=== PATIENT | female | born 1985 | race Caucasian/White ===

== ENCOUNTER 2018-09-08 08:48 | Emergency (ER) | payer OTHER ==
[2018-09-08 09:14] VITALS: BP 112/67; PULSE 108; TEMP 98; BMI 24.4
--- NOTE | 2018-09-08 09:28 | PDOC ---
History of Present Illness - General Chief Complaint: Overdose Stated Complaint: OVERDOSE Time Seen by Provider: 09/08/18 09:10 History Source: Patient Exam Limitations: No Limitations - History of Present Illness Initial Comments: 32 yo f w a pmg of asthma, Hep C, anxiety, depression, IV heroin use, cocaine abuse, and a 15 Pack year smoking hx presents to the ER after a heroin overdose which she states was a relapse. She says she has not used heroin since May 26 but relapsed last night because she was given 3 bags. The patient states she was found down in her car by EMS. She last used Heroin this morning at 4 am when she used 1 bag of heroin which she says when mixed with water is 10 ccs. She also did two bags last night before she shot up at 4 am. She is part of an outpatient rehabilitation program which she does not feel is working well for her. She usually takes buprenorphine. She states she does not take methadone and EMS did not give her any naloxone bc when they opened her car door and put their hand on her she abruptly woke up. PCP: Pamela Boone PSH: None reported Allergies: Codeine Social Hx: IV heroin usgae, occasional cocaine, recreational alcohol, 1 PPD ~ 15 years Past History - Past Medical History Allergies/Adverse Reactions: Allergies Allergy/AdvReac Type Severity Reaction Status Date / Time codeine Allergy Verified 09/08/18 09:14 Home Medications: Ambulatory Orders Alprazolam [Xanax] 1 mg PO PRN PRN 09/08/18 Alprazolam [Xanax] 2 mg PO HS 09/08/18 Buprenorphine HCl/Naloxone HCl [Suboxone 12 mg-3 mg Sl Film] 1 each SL DAILY Clindamycin [Cleocin -] 600 mg PO Q8H #28 capsule 09/08/18 Clonazepam 1 mg PO DAILY 09/08/18 Divalproex [Depakote -] 0 mg PO DAILY 09/08/18 COPD: No GI Disorders: Yes (HEP C) Psychiatric Problems: Yes (ANXIETY/DEPRESSION) - Suicide/Smoking/Psychosocial Hx Smoking History: Current every day smoker Have you smoked in the past 12 months: Yes Number of Cigarettes Smoked Daily: 20 Information on smoking cessation initiated: No Hx Alcohol Use: Yes Drug/Substance Use Hx: Yes Review of Systems - Review of Systems Able to Perform ROS?: Yes Comments:: CONSTITUTIONAL: Absent: fever, no chills, no fatigue EYES: Absent: visual changes ENT: Absent: ear pain, no sore throat CARDIOVASCULAR: Absent: chest pain, no palpitations RESPIRATORY: Present: SOB Absent: cough GI: Absent: abdominal pain, no nausea, no vomiting, no constipation, no diarrhea GENITOURINARY: Absent: dysuria, no frequency, no hematuria MUSKULOSKELETAL: Absent: back pain, no arthralgia, no myalgia SKIN: Absent: rash NEURO: Absent: headache *Physical Exam - Vital Signs Last Vital Signs Temp Pulse Resp BP Pulse Ox 98.0 F 108 H 18 112/67 97 09/08/18 09:07 09/08/18 09:07 09/08/18 09:07 09/08/18 09:07 09/08/18 09:07 - Physical Exam Comments: GENERAL: Well-appearing, well-nourished. No apparent distress. HEENT: Normocephalic, atraumatic. PERRL, EOM intact. CARDIOVASCULAR: Tachycardic rate. Normal S1, S2. Regular rhythm. PULMONARY: There is left lower lobe wheezing. Mild evidence of respiratory distress. No rales or rhonchi. ABDOMEN: Soft, non-distended, non-tender. EXTREMITIES: Normal ROM in all four extremities. No gross deformities. SKIN: There are track freitas all over her arms. Warm, dry. No rash NEUROLOGICAL: No focal neurological deficits. ED Treatment Course - LABORATORY CBC & Chemistry Diagram: 09/08/18 09:36 09/08/18 09:36 Medical Decision Making - Medical Decision Making 32 yo f w a pmg of asthma, Hep C, anxiety, depression, IV heroin use, cocaine abuse, and a 15 Pack year smoking hx presents to the ER after a heroin overdose which she states was a relapse. She says she has not used heroin since May 26 but relapsed last night because she was given 3 bags. The patient states she was found down in her car by EMS. She last used Heroin this morning at 4 am when she used 1 bag of heroin which she says when mixed with water is 10 ccs. She also did two bags last night before she shot up at 4 am. She is part of an outpatient rehabilitation program which she does not feel is working well for her. She usually takes buprenorphine. She states she does not take methadone and EMS did not give her any naloxone bc when they opened her car door and put their hand on her she abruptly woke up. VS: Tachycardic DDx IBNLT: Heroin overdose, asthma exacerbation, aspiration injury, . Plan: Labs, Urine, duonebs, CXR, re-assess. Patient feels better, is no longer high, has been observed for 3 hours, and now has normal vital signs. - She states she will FU w her pcp later on today. *DC/Admit/Observation/Transfer Diagnosis at time of Disposition: Overdose of heroin, Asthma, Cellulitis - Discharge Dispostion Disposition: HOME Condition at time of disposition: Stable Decision to Admit order: No - Prescriptions Prescriptions: Clindamycin [Cleocin -] 600 mg PO Q8H #28 capsule - Referrals Referrals: Juanis Boone MD [Primary Care Provider] - - Patient Instructions Printed Discharge Instructions: DI for Cellulitis -- Adult, Chemical Dependency (Narcotic) (Alternative Therapy) Additional Instructions: We are sending an antibiotic to your pharmacy - please make sure to go and pick it up. Take clindamycin 3 times a day for the next 7 days. Please do not use anymore heroin. Please schedule a follow up appointment with your PCP in the next 24 to 48 hours to make sure you are getting better, being taken care of, and not relapsing again. Come back to the ER immediately if you are considering overdosing, do any drugs , have shortness of breath, or any other new or worsening concerns. Thank you for coming to the [facility] ER. We hope you feel better soon! Print Language: ITALIAN - Post Discharge Activity
[2018-09-08] MEDS ORDERED: ALBUTEROL SO4 2.5/IPRATROPIUM 0.5 INH SOL 3 ML VIAL.NEB. NEB ONE ×2 (09:29→09:37)
[2018-09-08 10:00] LABS: BASO % 0.4 % (0-2.0); EOS % 2.1 % (0-4.5); HEMATOCRIT 35.4 % (32.4-45.2); HEMOGLOBIN 12.1 GM/dL (10.7-15.3); LYMPH % 8.2 % (8-40); MCH 30.8 pg (25.7-33.7); MCHC 34.2 g/dl (32.0-36.0); MEAN CELL VOLUME 90.1 fl (80-96); MEAN PLT VOLUME 8.5 fl (7.5-11.1); MONO % 4.7 % (3.8-10.2); NEUT % 84.6 % (42.8-82.8); PLATELET COUNT 278 K/MM3 (134-434); RBC 3.93 M/mm3 (3.60-5.2); RDW 13.8 % (11.6-15.6); WHITE BLOOD COUNT 13.5 K/mm3 (4.0-10.0)
--- NOTE | 2018-09-08 10:13 | PDOC ---
Documentation entered by Anna Marie Charles SCRIBE, acting as scribe for Radha Holman MD. Radha Holman MD: This documentation has been prepared by the Melvin kearns Amanda, SCRIBE, under my direction and personally reviewed by me in its entirety. I confirm that the documentation accurately reflects all work, treatment, procedures, and medical decision making performed by me. Attending Attestation - Resident Resident Name: Yariel Ramirez - ED Attending Attestation I have performed the following: I have examined & evaluated the patient, The case was reviewed & discussed with the resident, I agree w/resident's findings & plan, Exceptions are as noted - HPI HPI: 09/08/18 09:36 The patient is a 32 year old female a significant past medical history of asthma , Hep C, anxiety, depression, IV heroin use, cocaine abuse, and a 15 Pack a year smoking history, who presents to the ED via ems for evaluation after a heroin overdose today. She reportedly used one bag of heroin IV at 4AM and 2 other bags last night. She states she has been on outpatient rehab program with her last heroin use in May prior to last night. The patient was found slumped in her car by EMS, however, was reportedly arousable by ems when they opened her car door. PCP: Pamela Boone PSH: None reported Allergies: Codeine Social Hx: IV heroin usgae, occasional cocaine, recreational alcohol, 1 PPD ~ 15 years - Physicial Exam PE: GENERAL: Awake, alert, and fully oriented. Anxious, tearful at times HEAD: No signs of trauma EYES: PERRLA, EOMI, sclera anicteric, conjunctiva clear ENT: Auricles normal inspection, hearing grossly normal, nares patent, oropharynx clear without exudates. Dry mucosa NECK: Normal ROM, supple, no lymphadenopathy, JVD, or masses LUNGS: Good air entry B/L, scattered rhonchi. No wheezes, and no crackles HEART: Regular rate and rhythm, normal S1 and S2, no murmurs, rubs or gallops ABDOMEN: Soft, nontender, normoactive bowel sounds. No guarding, no rebound. No masses EXTREMITIES: Normal range of motion, no edema. No clubbing or cyanosis. No cords, erythema, or tenderness NEUROLOGICAL: Cranial nerves II through XII grossly intact. Normal speech, normal gait. Motor and sensation intact SKIN: Warm, Dry, normal turgor. L wrist with erythematous edematous area, overlying skin lesion c/w recent IVDU (as per patient) - Medical Decision Making Pt is s/p overdose, now awake and alert, tolerating PO. Will give asthma treatment, abx to treat for cellulitis L forearm.
[2018-09-08 10:37] LABS: ALBUMIN 4.1 g/dl (3.4-5.0); ALK PHOS 59 U/L (45-117); ANION GAP 7 MMOL/L (8-16); BILIRUBIN,TOTAL 0.7 mg/dL (0.2-1); BLOOD UREA NITROGEN 15 mg/dL (7-18); CALCIUM 8.5 mg/dL (8.5-10.1); CHLORIDE 104 mmol/L (98-107); CO2 28 mmol/L (21-32); CREATININE 0.7 mg/dL (0.55-1.3); GLUCOSE,RANDOM 111 mg/dL (74-106); POTASSIUM 3.5 mmol/L (3.5-5.1); SGOT/AST 29 U/L (15-37); SGPT/ALT 23 U/L (13-61); SODIUM 139 mmol/L (136-145); TOT PROT 7.2 g/dl (6.4-8.2)
== END 2018-09-08 11:18 | disposition home or self-care (01) ==
LOC: JER 08:48
PROC: 3E0F7GC Introduction of Other Therapeutic Substance into Respiratory Tract, Via Natural or Artificial Opening (ICD-10-PCS; principal; 2018-09-08)
DX: T40.1X1A Poisoning by heroin, accidental (unintentional), initial encounter (principal); J45.909 Unspecified asthma, uncomplicated; F41.8 Other specified anxiety disorders; F17.210 Nicotine dependence, cigarettes, uncomplicated; B19.20 Unspecified viral hepatitis C without hepatic coma; F14.10 Cocaine abuse, uncomplicated
CPT/HCPCS: 36415; 80053; 80307; 85025; 94640; 99283-25

== ENCOUNTER 2018-09-28 14:21 | Emergency (ER) | payer OTHER ==
--- NOTE | 2018-09-28 14:32 | PDOC ---
Rapid Medical Evaluation Medical Evaluation: Allergies Allergy/AdvReac Type Severity Reaction Status Date / Time codeine Allergy Verified 09/08/18 09:14 I have performed a brief in-person evaluation of this patient. The patient presents with a chief complaint of: Hx asthma, Hep C, anxiety, depression, IV heroin use, cocaine abuse, and a 15 Pack year smoking sent by PCP for abscess along L forearm x 3 days; was seen 3 weeks ago for cellulitis of L forearm (different site), which healed after Clindamycin denies fever Pertinent physical exam findings: +swelling, erythema and induration along L forearm I have ordered the following: Motrin The patient will proceed to the ED for further evaluation. 09/28/18 14:29 \
[2018-09-28] MEDS ORDERED: IBUPROFEN 400 MG TABLET (FP) PO ONE ×2 (14:33→15:08)
[2018-09-28 14:36] VITALS: BMI 23.6
[2018-09-28] MEDS ORDERED: PIPERACILLIN/TAZOB 3.375 GM 3.375 GM in DEXTROSE 5%-WATER - 50 ML IVPB ONE (15:14)
[2018-09-28] MEDS ORDERED: VANCOMYCIN 1,000 MG in DEXTROSE 5%-WATER - 250 ML IVPB ONE (15:14)
--- NOTE | 2018-09-28 15:31 | PDOC ---
History of Present Illness - General Chief Complaint: Wound Stated Complaint: SENT BY PCP Time Seen by Provider: 09/28/18 14:33 History Source: Patient Exam Limitations: No Limitations Past History - Travel Traveled outside of the country in the last 30 days: No Close contact w/someone who was outside of country & ill: No - Past Medical History Allergies/Adverse Reactions: Allergies Allergy/AdvReac Type Severity Reaction Status Date / Time codeine Allergy Verified 09/08/18 09:14 Home Medications: Ambulatory Orders Alprazolam [Xanax] 1 mg PO PRN PRN 09/08/18 Alprazolam [Xanax] 2 mg PO HS 09/08/18 Buprenorphine HCl/Naloxone HCl [Suboxone 12 mg-3 mg Sl Film] 1 each SL DAILY Clindamycin [Cleocin -] 600 mg PO Q8H #28 capsule 09/08/18 Clonazepam 1 mg PO DAILY 09/08/18 Divalproex [Depakote -] 0 mg PO DAILY 09/08/18 COPD: No GI Disorders: Yes (HEP C) Psychiatric Problems: Yes (ANXIETY/DEPRESSION) - Suicide/Smoking/Psychosocial Hx Smoking History: Current every day smoker Have you smoked in the past 12 months: Yes Number of Cigarettes Smoked Daily: 20 Information on smoking cessation initiated: No Hx Alcohol Use: Yes Drug/Substance Use Hx: Yes Review of Systems - Review of Systems Able to Perform ROS?: Yes Comments:: 09/28/18 15:38 CONSTITUTIONAL: Absent: fever, chills, diaphoresis, generalized weakness, malaise, loss of appetite HEENT: Absent: rhinorrhea, nasal congestion, throat pain, throat swelling, difficulty swallowing, mouth swelling, ear pain, eye pain, visual Changes CARDIOVASCULAR: Absent: chest pain, loss of consciousness, palpitations, irregular heart rate, peripheral edema RESPIRATORY: Absent: cough, shortness of breath, dyspnea with exertion, orthopnea, wheezing, stridor, hemoptysis GASTROINTESTINAL: Absent: abdominal pain, abdominal distension, nausea, vomiting, diarrhea, constipation, melena, hematochezia GENITOURINARY: Absent: dysuria, frequency, urgency, hesitancy, hematuria, flank pain, genital pain MUSCULOSKELETAL: Absent: myalgia, arthralgia, joint swelling SKIN: Present: abscess to L forearmAbsent: rash, itching, pallor HEMATOLOGIC/IMMUNOLOGIC: Absent: easy bleeding, easy bruising, lymphadenopathy, frequent infections ENDOCRINE: Absent: unexplained weight gain, unexplained weight loss, heat intolerance, cold intolerance NEUROLOGIC: Absent: headache, focal weakness or paresthesias, dizziness, unsteady gait, seizure, mental status changes, bladder or bowel incontinence PSYCHIATRIC: Absent: anxiety, depression, suicidal or homicidal ideation, hallucinations. Is the patient limited [place] proficient: No *Physical Exam - Vital Signs Last Vital Signs Temp Pulse Resp BP Pulse Ox 98.1 F 92 H 18 124/65 99 09/28/18 14:31 09/28/18 14:31 09/28/18 14:31 09/28/18 14:31 09/28/18 14:31 - Physical Exam Comments: 09/28/18 16:03 GENERAL: Well developed, well nourished. Awake and alert. No acute distress. HEENT: Normocephalic, atraumatic. PERRLA, EOMI. No conjunctival pallor. Sclera are non- icteric. Moist mucous membranes. Oropharynx is clear. NECK: Supple. Full ROM. No JVD. Carotid pulses 2+ and symmetric, without bruits. No thyromegaly. No lymphadenopathy. CARDIOVASCULAR: Regular rate and rhythm. No murmurs, rubs, or gallops. Distal pulses are 2+ and symmetric. PULMONARY: No evidence of respiratory distress. Lungs clear to auscultation bilaterally. No wheezing, rales or rhonchi. ABDOMINAL: Soft. Non-tender. Non-distended. No rebound or guarding. No organomegaly. Normoactive bowel sounds. MUSCULOSKELETAL Normal range of motion at all joints. No bony deformities or tenderness. No CVA tenderness. EXTREMITIES: No cyanosis. No clubbing. No edema. No calf tenderness. SKIN: TTP of the L lateral forearom with softball sized abscess/induration with assoicated erythema. Warm and dry. Normal capillary refill. No rashes. No jaundice. NEUROLOGICAL: Alert, awake, appropriate. Cranial nerves 2-12 intact. No deficits to light touch and temperature in face, upper extremities and lower extremities. No motor deficits in the in face, upper extremities and lower extremities. Normoreflexic in the upper and lower extremities. Normal speech. Toes are down- going bilaterally. Gait is normal without ataxia. PSYCHIATRIC: Cooperative. Good eye contact. Appropriate mood and affect. ED Treatment Course - Medications Given in the ED: ED Medications Discontinued Medications Generic Name Dose Route Start Last Admin Trade Name Gunnar PRN Reason Stop Dose Admin Ibuprofen 800 mg 09/28/18 14:33 09/28/18 15:09 Motrin - PO 09/28/18 14:34 800 mg ONCE ONE Administration Medical Decision Making - Medical Decision Making 09/28/18 15:55 The patient is a 32 y/o F with PMH of asthma, Hep C, anxiety, depression, IV heroin use, cocaine abuse, and a 15 Pack year smoking sent by her PCP for abscess along L forearm x 3 days; was seen 3 weeks ago for cellulitis of L forearm (different site), which healed after Clindamycin. She states she is currently taking Clindamycin since Tuesday. Denies fevers, chills, numbness/ tingling and weakness to the affected extremity. Pt is R hand dominant A/P: Abscess: Pt with softball sized abscess to the L lateral forearm, hard and indurated. Labs, Blood cx, urine, IV abx Anticipate admission Signed out to Dr. Molina and charge nurse Paola. Pt able to be transferred from FT to the main ed *DC/Admit/Observation/Transfer Diagnosis at time of Disposition: Abscess - Discharge Dispostion Condition at time of disposition: Stable - Referrals Referrals: Lobito Hines MD [Primary Care Provider] - - Patient Instructions - Post Discharge Activity
[2018-09-28 16:21] LABS: BASO % 0.6 % (0-2.0); EOS % 1.8 % (0-4.5); EPI CELLS 11.1 /HPF (0-5/HPF); HEMATOCRIT 40.4 % (32.4-45.2); HEMOGLOBIN 13.6 GM/dL (10.7-15.3); MCH 30.7 pg (25.7-33.7); MCHC 33.7 g/dl (32.0-36.0); MEAN CELL VOLUME 91.3 fl (80-96); MEAN PLT VOLUME 8.6 fl (7.5-11.1); MONO % 4.6 % (3.8-10.2); PH,URINE 5.5 (5.0-8.0); PLATELET COUNT 353 K/MM3 (134-434); RBC 4.43 M/mm3 (3.60-5.2); URINE APPEARANCE CLOUDY; URINE BACTERIA 570.8 /hpf (NEGATIVE); URINE BILIRUBIN NEGATIVE (NEGATIVE); URINE CASTS 16 /lpf (0-8); URINE COLOR YELLOW; URINE GLUCOSE (UA) NEGATIVE (NEGATIVE); URINE KETONE TRACE (NEGATIVE); URINE LEUK ESTERASE NEGATIVE (NEGATIVE); URINE NITRITE NEGATIVE (NEGATIVE); URINE PROTEIN NEGATIVE (NEGATIVE); URINE RBC 6 /hpf (0-4); WHITE BLOOD COUNT 14.3 K/mm3 (4.0-10.0)
[2018-09-28 16:22] LABS: HCG,QUALITATIVE URINE Negative
[2018-09-28 16:32] LABS: INR 0.96 (0.83-1.09); PROTHROMBIN TIME (PATIENT) 11.3 SEC (9.7-13.0)
[2018-09-28] MEDS ORDERED: VANCOMYCIN 1 GRAM (PRE-DOCKED) 1,000 MG/250 ML BAG IVPB ONE ×2 (16:32→18:47)
[2018-09-28] MEDS ORDERED: PIPERACILLIN/TAZOB 3.375 GM 3.375 GM/50 ML BAG IVPB ONE (16:33)
[2018-09-28 16:47] LABS: ALBUMIN 3.6 g/dl (3.4-5.0); BILIRUBIN,TOTAL 0.2 mg/dL (0.2-1); CALCIUM 8.9 mg/dL (8.5-10.1); CREATININE 0.6 mg/dL (0.55-1.3); POTASSIUM 4.1 mmol/L (3.5-5.1); TOT PROT 7.7 g/dl (6.4-8.2)
[2018-09-28 16:50] LABS: METHADONE, UR NEGATIVE ng/ml (CUTOFF=300); PHENCYCLIDINE,URINE NEGATIVE ng/ml (CUTOFF=25); URINE AMPHETAMINES NEGATIVE ng/ml (CUTOFF=500); URINE BARBITURATES NEGATIVE ng/ml (CUTOFF=200); URINE BENZODIAZEPINES NEGATIVE ng/ml (CUTOFF=200)
[2018-09-28 16:58] LABS: URINE WBC 9.9 /hpf (0-5)
--- NOTE | 2018-09-28 17:02 | PDOC ---
History of Present Illness - General Chief Complaint: Wound Stated Complaint: SENT BY PCP Time Seen by Provider: 09/28/18 14:33 History Source: Patient Exam Limitations: No Limitations - History of Present Illness Initial Comments: 09/28/18 16:57 32 year old female with PMH IV heroine abuse, IV cocaine abuse, hep C, asthma, right hand dominant sent to ED by PCP for left forearm abscess x3 days after injecting cocaine into the area. Pt was treated for left arm cellulitis x3 weeks ago, treated with Clindamycin, which resolved. Pt is currently taking Clindamycin, started Tuesday. Pt denied fever, chills, nasuea, vomiting, numbness, tingling, chest pain, shortness of breath, lightheadedness. Allergies: Codeine Past History - Past Medical History Allergies/Adverse Reactions: Allergies Allergy/AdvReac Type Severity Reaction Status Date / Time codeine Allergy Verified 09/08/18 09:14 Home Medications: Ambulatory Orders Alprazolam [Xanax] 1 mg PO PRN PRN 09/08/18 Alprazolam [Xanax] 2 mg PO HS 09/08/18 Buprenorphine HCl/Naloxone HCl [Suboxone 12 mg-3 mg Sl Film] 1 each SL DAILY Clindamycin [Cleocin -] 600 mg PO Q8H #28 capsule 09/08/18 Clonazepam 1 mg PO DAILY 09/08/18 Divalproex [Depakote -] 0 mg PO DAILY 09/08/18 COPD: No GI Disorders: Yes (HEP C) Psychiatric Problems: Yes (ANXIETY/DEPRESSION) - Suicide/Smoking/Psychosocial Hx Smoking History: Current every day smoker Have you smoked in the past 12 months: Yes Number of Cigarettes Smoked Daily: 20 Information on smoking cessation initiated: No Hx Alcohol Use: Yes Drug/Substance Use Hx: Yes Review of Systems - Review of Systems Able to Perform ROS?: Yes Comments:: 09/28/18 16:59 General: denied fever, chills, generalized weakness. HEENT: denied sore throat, rhinorrhea, ear pain. Heart: denied chest pain, palpitations, syncope, diaphoresis. Respiratory: denied shortness of breath, cough, sputum production, hemoptysis. Abdomen: denied abdominal pain, nausea, vomiting, diarrhea, constipation, blood in stool. : denied dysuria, increased urinary frequency, hematuria, urinary incontinence , flank pain. Back: denied back pain. Musculoskeletal: denied joint pain, muscle pain, joint swelling. Neurological: denied headache, dizziness, numbness, tingling, weakness. Skin: admitted to abscess. denied laceration, abrasion. *Physical Exam - Vital Signs Last Vital Signs Temp Pulse Resp BP Pulse Ox 98.1 F 92 H 18 124/65 99 09/28/18 14:31 09/28/18 14:31 09/28/18 14:31 09/28/18 14:31 09/28/18 14:31 - Physical Exam Comments: 09/28/18 17:00 Constitutional: Well-nourished, Well-developed, appearing stated age. HEENT: head is normocephalic, atraumatic. EOMI. PERRLA. Neck: supple. Full ROM. Heart: regular rhythm. no murmurs, rubs or gallops. Lungs: clear to auscultation bilaterally. no crackles, rhonchi or wheezing. no stridor. Abdomen: soft, nontender. normal bowel sounds. no rebound, guarding, masses. Extremities: peripheral pulses intact. no lower extremity edema. Neurological: CN 2-12 grossly intact. moves all four extremities. Psych: awake, alert, oriented x3. follows commands. answers questions appropriately. Skin: 6x4 cm raised indurant mass to left forearm, no fluctuation. no overlying erythema. no crepitus. ED Treatment Course - LABORATORY CBC & Chemistry Diagram: 09/28/18 15:55 09/28/18 15:55 - ADDITIONAL ORDERS Additional order review: Laboratory Results 09/28/18 09/28/18 09/28/18 15:55 15:55 15:55 PT with INR 11.30 INR 0.96 Sodium Potassium Chloride Carbon Dioxide Anion Gap BUN Creatinine Est GFR (CKD-EPI)AfAm Est GFR (CKD-EPI)NonAf Random Glucose Calcium Total Bilirubin AST ALT Alkaline Phosphatase Total Protein Albumin Urine Color Yellow Urine Appearance Cloudy Urine pH 5.5 Ur Specific [place] 1.034 Urine Protein Negative Urine Glucose (UA) Negative Urine Ketones Trace H Urine Blood 1+ H Urine Nitrite Negative Urine Bilirubin Negative Urine Urobilinogen 1.0 Ur Leukocyte Esterase Negative Urine WBC (Auto) /z Urine RBC (Auto) 6 Urine Casts (Auto) 16 U Pathogenic Cast Auto /z U Epithel Cells (Auto) 11.1 Urine Bacteria (Auto) 570.8 Urine HCG, Qual Negative Methadone Screen Negative Barbiturate Screen Negative Phencyclidine Screen Negative Ur Amphetamines Screen Negative MDMA (Ecstasy) Screen Negative Benzodiazepines Screen Negative U Marijuana (THC) Screen Negative 09/28/18 15:55 PT with INR INR Sodium 136 Potassium 4.1 Chloride 102 Carbon Dioxide 26 Anion Gap 7 L BUN 12 Creatinine 0.6 Est GFR (CKD-EPI)AfAm 138.80 Est GFR (CKD-EPI)NonAf 119.76 Random Glucose 101 Calcium 8.9 Total Bilirubin 0.2 AST 13 L ALT 27 Alkaline Phosphatase 113 Total Protein 7.7 Albumin 3.6 Urine Color Urine Appearance Urine pH Ur Specific [place] Urine Protein Urine Glucose (UA) Urine Ketones Urine Blood Urine Nitrite Urine Bilirubin Urine Urobilinogen Ur Leukocyte Esterase Urine WBC (Auto) Urine RBC (Auto) Urine Casts (Auto) U Pathogenic Cast Auto U Epithel Cells (Auto) Urine Bacteria (Auto) Urine HCG, Qual Methadone Screen Barbiturate Screen Phencyclidine Screen Ur Amphetamines Screen MDMA (Ecstasy) Screen Benzodiazepines Screen U Marijuana (THC) Screen 09/28/18 15:55 RBC 4.43 MCV 91.3 MCHC 33.7 RDW 14.0 MPV 8.6 Neutrophils % 81.0 Lymphocytes % 12.0 D Monocytes % 4.6 Eosinophils % 1.8 Basophils % 0.6 - Medications Given in the ED: ED Medications Discontinued Medications Generic Name Dose Route Start Last Admin Trade Name Freq PRN Reason Stop Dose Admin Piperacillin Sod/Tazobactam 50 mls @ 100 mls/hr 09/28/18 15:14 09/28/18 16:48 Sod 3.375 gm/ Dextrose IVPB 09/28/18 15:43 100 mls/hr ONCE ONE Administration Protocol Ibuprofen 800 mg 09/28/18 14:33 09/28/18 15:09 Motrin - PO 09/28/18 14:34 800 mg ONCE ONE Administration Medical Decision Making - Medical Decision Making 09/28/18 17:00 32 year old female with above PMH sent to ED by PCP for left forearm abscess. Initial Vital Signs Temp Pulse Resp BP Pulse Ox 98.1 F 92 H 18 124/65 99 09/28/18 14:31 09/28/18 14:31 09/28/18 14:31 09/28/18 14:31 09/28/18 14:31 Afebrile. No tachycardia. No tachypnea. No hypotension. No hypoxia on room air. EKG performed at 1650: rate 72, regular rhythm, normal axis, normal intervals, no acute ST changes. CBC WBC 14.3 K/mm3 (4.0-10.0) H 09/28/18 15:55 RBC 4.43 M/mm3 (3.60-5.2) 09/28/18 15:55 Hgb 13.6 GM/dL (10.7-15.3) 09/28/18 15:55 Hct 40.4 % (32.4-45.2) 09/28/18 15:55 MCV 91.3 fl (80-96) 09/28/18 15:55 MCH 30.7 pg (25.7-33.7) 09/28/18 15:55 MCHC 33.7 g/dl (32.0-36.0) 09/28/18 15:55 RDW 14.0 % (11.6-15.6) 09/28/18 15:55 Plt Count 353 K/MM3 (134-434) D 09/28/18 15:55 MPV 8.6 fl (7.5-11.1) 09/28/18 15:55 Absolute Neuts (auto) 11.5 K/mm3 (1.5-8.0) H 09/28/18 15:55 Neutrophils % 81.0 % (42.8-82.8) 09/28/18 15:55 Lymphocytes % 12.0 % (8-40) D 09/28/18 15:55 Monocytes % 4.6 % (3.8-10.2) 09/28/18 15:55 Eosinophils % 1.8 % (0-4.5) 09/28/18 15:55 Basophils % 0.6 % (0-2.0) 09/28/18 15:55 Nucleated RBC % 0 % (0-0) 09/28/18 15:55 Leukocytosis. No anemia. CMP Sodium 136 mmol/L (136-145) 09/28/18 15:55 Potassium 4.1 mmol/L (3.5-5.1) 09/28/18 15:55 Chloride 102 mmol/L (98-107) 09/28/18 15:55 Carbon Dioxide 26 mmol/L (21-32) 09/28/18 15:55 Anion Gap 7 MMOL/L (8-16) L 09/28/18 15:55 BUN 12 mg/dL (7-18) 09/28/18 15:55 Creatinine 0.6 mg/dL (0.55-1.3) 09/28/18 15:55 Est GFR (CKD-EPI)AfAm 138.80 09/28/18 15:55 Est GFR (CKD-EPI)NonAf 119.76 09/28/18 15:55 Random Glucose 101 mg/dL (74-106) 09/28/18 15:55 Calcium 8.9 mg/dL (8.5-10.1) 09/28/18 15:55 Total Bilirubin 0.2 mg/dL (0.2-1) 09/28/18 15:55 AST 13 U/L (15-37) L 09/28/18 15:55 ALT 27 U/L (13-61) 09/28/18 15:55 Alkaline Phosphatase 113 U/L (45-117) 09/28/18 15:55 Total Protein 7.7 g/dl (6.4-8.2) 09/28/18 15:55 Albumin 3.6 g/dl (3.4-5.0) 09/28/18 15:55 No electrolyte abnormalities. No UBALDO. No transaminitis. INR, PTT INR 0.96 (0.83-1.09) 09/28/18 15:55 Urine Test Results Urine Color Yellow 09/28/18 15:55 Urine Appearance Cloudy 09/28/18 15:55 Urine pH 5.5 (5.0-8.0) 09/28/18 15:55 Ur Specific [place] 1.034 (1.010-1.035) 09/28/18 15:55 Urine Protein Negative (NEGATIVE) 09/28/18 15:55 Urine Glucose (UA) Negative (NEGATIVE) 09/28/18 15:55 Urine Ketones Trace (NEGATIVE) H 09/28/18 15:55 Urine Blood 1+ (NEGATIVE) H 09/28/18 15:55 Urine Nitrite Negative (NEGATIVE) 09/28/18 15:55 Urine Bilirubin Negative (NEGATIVE) 09/28/18 15:55 Ur Leukocyte Esterase Negative (NEGATIVE) 09/28/18 15:55 Negative for UTI. 09/28/18 17:07 Pt has hvies to right arm and periorbital edema after Zosyn administration. Medications ordered: Benadryl 25 mg IV 09/28/18 17:39 Bedside ultrasound was performed, cobblestoning was observed. no cutaneous abscess was seen. intramuscular complexity observed. suspicious for intramusclar abscess. Imaging ordered: Upper extremity CT with contrast Medications ordered: normal saline bolus 1000cc 09/28/18 19:25 Dr. Mota called, stated pt has intramuscular abscess. Hand paged. Pt to be admitted. 09/28/18 19:49 Dr. Hines paged. 09/28/18 19:57 Dr. Toney's office called, office staff stated he is not route contractor. Office refused to page Dr. Toney. Office then paged Dr. Jordan. Dr. Jordan called the ED, it was explained to Dr. Jordan that we are requesting hand surgery consult, not general surgery consult. Dr. Jordan provided us with Dr. Simpson's cell phone number. I spoke with Dr. Parker, who stated Dr. Toney is route contractor. Dr. Toney's cell phone called, messaged left on voicemail. 09/28/18 20:20 Dr. Toney's office was called again, the line went to voicemail, a message was left. 09/28/18 20:[address] Hines, who stated to consult general surgery. General surgery, Dr. Lu paged. 09/28/18 20:56 Dr. Lu stated he does not operate on forearm. Pt to be transferred to [place]. Pending transfer. 09/28/18 21:08 I spoke with [facility], who stated this case is able to be treated by general surgery. Dr. Lu paged. 09/28/18 21:56 Dr. Lu did not return phone call. Dr. Winston, ortho route contractor paged, he stated that if there is no fracture, he cannot take the case. I spoke with Dr. Cabrera, [facility], he stated he accepts the patient. Pending transfer. Pt agrees with plan for care. Pt requesting pain medication. Medications ordered: Tylenol IV *DC/Admit/Observation/Transfer Diagnosis at time of Disposition: Abscess - Discharge Dispostion Disposition: TRANSFER ACUTE CARE/OTHER HOSP Condition at time of disposition: Stable - Referrals Referrals: Lobito Hines MD [Primary Care Provider] - - Patient Instructions - Post Discharge Activity
[2018-09-28 17:38] LABS: COCAINE, UR POSITIVE ng/ml (CUTOFF=300)
[2018-09-28] MEDS ORDERED: SODIUM CHLORIDE 1,000 ML IV STA (17:38)
[2018-09-28 17:39] LABS: OPIATES, URI POSITIVE ng/ml (CUTOFF=300)
--- NOTE | 2018-09-28 19:06 | PDOC ---
Documentation entered by Yoly Beckford SCRIBE, acting as scribe for Jean Molina MD. Jean Molina MD: This documentation has been prepared by the Shakeel kearns Daisy, SCRIBE, under my direction and personally reviewed by me in its entirety. I confirm that the documentation accurately reflects all work, treatment, procedures, and medical decision making performed by me. Attending Attestation - Resident Resident Name: Shy Rowland - ED Attending Attestation I have performed the following: I have examined & evaluated the patient, The case was reviewed & discussed with the resident, I agree w/resident's findings & plan - HPI HPI: 09/28/18 17:30 The patient is a 32YOF with a PMH of IV heroine abuse, cocaine abuse, hep C, and asthma who presents to the ED sent in by her PCP for evaluation of a left forearm abscess for the past 3 days. She was treated for left arm cellulitis with Clindamycin 3 weeks ago. Denies any fever, chills, N/V, numbness/ tingling/ weakness chest pain, cp, sob , and lightheadedness. - Physicial Exam PE: 09/28/18 17:39 General: No acute distress MSK: firm/indurated mass noted on proximal L forarm/elbow, warm, tdner to palpation, n/v intact, sensation intact - Medical Decision Making 09/28/18 17:40 bedside US performed, +complex fluid filled mass suspect in muscle - will obtain CT pt written for abx anticipate will need to dw surgery/hand for OR mangement/drainage
[2018-09-28] MEDS ORDERED: ACETAMINOPHEN 1000 MG/100 ML VIAL (NON FORMULARY) IVPB ONE (21:58)
[2018-09-28] MEDS ORDERED: ACETAMINOPHEN INJECTION 100 ML IVPB ONE (22:05)
[2018-09-28 22:10] VITALS: TEMP 98.2
[2018-09-28 22:15] VITALS: BP 118/65; PULSE 80
--- NOTE | 2018-09-29 14:45 | EKG ---
Test Reason : Blood Pressure : / mmHG Vent. Rate : 072 BPM Atrial Rate : 072 BPM P-R Int : 140 ms QRS Dur : 084 ms QT Int : 372 ms P-R-T Axes : 043 069 058 degrees QTc Int : 407 ms POOR DATA QUALITY, INTERPRETATION MAY BE ADVERSELY AFFECTED NORMAL SINUS RHYTHM NORMAL ECG NO PREVIOUS ECGS AVAILABLE Confirmed by NEHEMIAH SOUTH MD ([id number]) on 09/29/2018 2:44:54 PM Referred By: Confirmed By:NEHEMIAH SOUTH MD
== END 2018-09-28 22:39 | disposition short-term general hospital (02) ==
LOC: JER 14:21 → JERFT 14:21 → JER 22:39
PROC: 3E03329 Introduction of Other Anti-infective into Peripheral Vein, Percutaneous Approach (ICD-10-PCS; principal; 2018-09-28)
PROC: 3E033NZ Introduction of Analgesics, Hypnotics, Sedatives into Peripheral Vein, Percutaneous Approach (ICD-10-PCS; 2018-09-28)
PROC: 3E033GC Introduction of Other Therapeutic Substance into Peripheral Vein, Percutaneous Approach (ICD-10-PCS; 2018-09-28)
PROC: 3E0337Z Introduction of Electrolytic and Water Balance Substance into Peripheral Vein, Percutaneous Approach (ICD-10-PCS; 2018-09-28)
DX: L02.414 Cutaneous abscess of left upper limb (principal); F41.8 Other specified anxiety disorders; F32.9 Major depressive disorder, single episode, unspecified; Z86.19 Personal history of other infectious and parasitic diseases; F14.10 Cocaine abuse, uncomplicated
CPT/HCPCS: 36415; 71046-TC-FY; 73201-TC-RT; 80053; 80307; 81003; 84703; 85025; 85610; 86850; 86900; 86901; 87040; 93005; 93010; 99285-25; J0131; J7030

== ENCOUNTER 2019-05-15 11:56 | Emergency (ER) | payer OTHER ==
[2019-05-15 12:18] VITALS: BMI 22.4
[2019-05-15 13:37] LABS: BASO % 0.5 % (0-2.0); EOS % 0.7 % (0-4.5); HEMATOCRIT 38.7 % (32.4-45.2); HEMOGLOBIN 12.8 GM/dL (10.7-15.3); LYMPH % 14.1 % (8-40); MCH 29.8 pg (25.7-33.7); MCHC 33.2 g/dl (32.0-36.0); MEAN CELL VOLUME 89.6 fl (80-96); MEAN PLT VOLUME 8.7 fl (7.5-11.1); MONO % 6.1 % (3.8-10.2); NEUT % 78.6 % (42.8-82.8); PLATELET COUNT 341 K/MM3 (134-434); RBC 4.32 M/mm3 (3.60-5.2); WHITE BLOOD COUNT 10.2 K/mm3 (4.0-10.0)
[2019-05-15 13:56] LABS: EPI CELLS 6.1 /HPF (0-5/HPF); HYALINE CASTS 18 /lpf (0-8); URINE APPEARANCE CLOUDY; URINE BACTERIA 428.5 /hpf (NEGATIVE); URINE BILIRUBIN NEGATIVE (NEGATIVE); URINE COLOR DK YELLOW; URINE GLUCOSE (UA) NEGATIVE (NEGATIVE); URINE KETONE NEGATIVE (NEGATIVE); URINE LEUK ESTERASE NEGATIVE (NEGATIVE); URINE NITRITE NEGATIVE (NEGATIVE); URINE PROTEIN 1+ (NEGATIVE); URINE RBC 2 /hpf (0-4); URINE WBC 9 /hpf (0-5)
[2019-05-15 14:11] LABS: ALBUMIN 3.8 g/dl (3.4-5.0); BILIRUBIN,TOTAL 0.4 mg/dL (0.2-1); BLOOD UREA NITROGEN 9.5 mg/dL (7-18); CALCIUM 9.5 mg/dL (8.5-10.1); CREATININE 0.8 mg/dL (0.55-1.3); POTASSIUM 3.8 mmol/L (3.5-5.1); TOT PROT 7.9 g/dl (6.4-8.2)
--- NOTE | 2019-05-15 14:21 | PDOC ---
History of Present Illness - General Chief Complaint: Substance Abuse Stated Complaint: DETOX Time Seen by Provider: 05/15/19 12:35 History Source: Patient Exam Limitations: No Limitations - History of Present Illness Initial Comments: 05/15/19 13:21 33-year-old female presents to the emergency room for request of a detox program. Patient states he went to [place] to be admitted for drug abuse but was told she needs clearance by hospital and then may be transferred after she is detoxed elsewhere. Patient currently denies chest pain, shortness of breath, nausea or vomiting but states did use heroin IV at approximately 1030 this morning Timing/Duration: other Severity: mild, moderate Associated Symptoms: reports: denies symptoms Past History - Travel Traveled outside of the country in the last 30 days: No Close contact w/someone who was outside of country & ill: No - Past Medical History Allergies/Adverse Reactions: Allergies Allergy/AdvReac Type Severity Reaction Status Date / Time codeine Allergy Verified 05/15/19 12:14 piperacillin [From Zosyn] AdvReac Mild Itching Verified 05/15/19 12:14 tazobactam [From Zosyn] AdvReac Mild Itching Verified 05/15/19 12:14 Home Medications: Ambulatory Orders Alprazolam [Xanax] 1 mg PO PRN PRN 09/08/18 Alprazolam [Xanax] 2 mg PO HS 09/08/18 Buprenorphine HCl/Naloxone HCl [Suboxone 12 mg-3 mg Sl Film] 1 each SL DAILY Clindamycin [Cleocin -] 600 mg PO Q8H #28 capsule 09/08/18 Clonazepam 1 mg PO DAILY 09/08/18 Divalproex [Depakote -] 0 mg PO DAILY 09/08/18 COPD: No GI Disorders: Yes (HEP C) Psychiatric Problems: Yes (ANXIETY/DEPRESSION) - Immunization History Immunization Up to Date: Yes - Psycho Social/Smoking Cessation Hx Smoking History: Never smoked Have you smoked in the past 12 months: Yes Number of Cigarettes Smoked Daily: 20 Information on smoking cessation initiated: No Hx Alcohol Use: No Drug/Substance Use Hx: Yes (heroin,cocaine) Patient Lives Alone: No Lives with/in: spouse/SO Review of Systems - Review of Systems Able to Perform ROS?: Yes Constitutional: No: Symptoms Reported HEENTM: No: Symptoms Reported Respiratory: No: Symptoms reported Cardiac (ROS): No: Symptoms Reported ABD/GI: No: Symptoms Reported : No: Symptoms Reported Musculoskeletal: No: Symptoms Reported Integumentary: No: Symptoms Reported Neurological: No: Symptoms reported Endocrine: No: Symptoms Reported Hematologic/Lymphatic: No: Symptoms Reported *Physical Exam - Vital Signs Last Vital Signs Temp Pulse Resp BP Pulse Ox 98 F 95 H 18 109/54 L 99 05/15/19 12:14 05/15/19 12:14 05/15/19 12:14 05/15/19 12:14 05/15/19 12:14 - Physical Exam General Appearance: Yes: Nourished, Appropriately Dressed. No: Apparent Distress HEENT: positive: EOMI, RAM[place] Neck: positive: Supple Respiratory/Chest: positive: Lungs Clear, Normal Breath Sounds. negative: Respiratory Distress, Accessory Muscle Use Cardiovascular: positive: Regular Rhythm, Regular Rate. negative: Murmur Gastrointestinal/Abdominal: positive: Soft. negative: Tenderness Integumentary: positive: Normal Color, Warm Neurologic: positive: Motor Strength 5/5 (Ambulatory). negative: Normal Mood/ Affect (Slightly anxious) ED Treatment Course - LABORATORY CBC & Chemistry Diagram: 05/15/19 13:00 05/15/19 13:00 - ADDITIONAL ORDERS Additional order review: 05/15/19 13:00 RBC 4.32 MCV 89.6 MCHC 33.2 RDW 14.0 MPV 8.7 Neutrophils % 78.6 Lymphocytes % 14.1 Monocytes % 6.1 Eosinophils % 0.7 Basophils % 0.5 Medical Decision Making - Medical Decision Making 05/15/19 13:40 Chief complaint: Patient requesting detox heroin, cocaine and other illicit drugs. Last used heroin at approximately 10:30 AM intravenously. Patient seeking rehabilitation to follow. Exam: Patient appears anxious otherwise normal vital signs Plan: Labs, urine, EKG and then transfer to [facility] 05/15/19 14:27 Laboratory Tests 05/15/19 05/15/19 05/15/19 13:00 13:00 13:00 WBC 10.2 H Hgb 12.8 Absolute Neuts (auto) 8.0 Sodium 137 Potassium 3.8 Chloride 101 Carbon Dioxide 27 Anion Gap 9 BUN 9.5 Creatinine 0.8 Est GFR (CKD-EPI)NonAf 96.19 Calcium 9.5 AST 25 Alkaline Phosphatase 95 Albumin 3.8 Urine Protein Urine Bilirubin Urine Urobilinogen Urine WBC (Auto) Urine RBC (Auto) Urine HCG, Qual Alcohol, Quantitative < 3 05/15/19 05/15/19 13:00 13:00 WBC Hgb Absolute Neuts (auto) Sodium Potassium Chloride Carbon Dioxide Anion Gap BUN Creatinine Est GFR (CKD-EPI)NonAf Calcium AST Alkaline Phosphatase Albumin Urine Protein 1+ H Urine Bilirubin Negative Urine Urobilinogen 1.0 Urine WBC (Auto) 9 Urine RBC (Auto) 2 Urine HCG, Qual Negative Alcohol, Quantitative 05/15/19 15:40 05/15/19 15:50 Laboratory Tests 05/15/19 05/15/19 05/15/19 13:00 13:00 13:00 WBC 10.2 H Hgb 12.8 Hct 38.7 Absolute Neuts (auto) 8.0 Sodium Potassium Chloride Carbon Dioxide Anion Gap BUN Creatinine Urine Protein Opiates Screen Positive A* Cocaine Screen Positive A* Alcohol, Quantitative < 3 05/15/19 05/15/19 13:00 13:00 WBC Hgb Hct Absolute Neuts (auto) Sodium 137 Potassium 3.8 Chloride 101 Carbon Dioxide 27 Anion Gap 9 BUN 9.5 Creatinine 0.8 Urine Protein 1+ H Opiates Screen Cocaine Screen Alcohol, Quantitative Case discussed with Dr. Kc and will be transferred via security. Discharge - Discharge Information Problems reviewed: Yes Clinical Impression/Diagnosis: Polysubstance abuse Disposition: HOME - Follow up/Referral Referrals: Lobito Hines MD [Primary Care Provider] - - Patient Discharge Instructions Patient Printed Discharge Instructions: Substance Use Disorder Additional Instructions: Please follow program as instructed and consider a long-term program to avoid relapse. - Post Discharge Activity
--- NOTE | 2019-05-15 15:15 | EKG ---
Test Reason : Blood Pressure : / mmHG Vent. Rate : 075 BPM Atrial Rate : 075 BPM P-R Int : 158 ms QRS Dur : 084 ms QT Int : 362 ms P-R-T Axes : 053 067 050 degrees QTc Int : 404 ms NORMAL SINUS RHYTHM NORMAL ECG WHEN COMPARED WITH ECG OF 28-SEP-2018 16:50, NO SIGNIFICANT CHANGE WAS FOUND Confirmed by MD Arnold Edward ([id number]) on 05/15/2019 3:15:23 PM Referred By: Confirmed By:Jae Arnold MD
[2019-05-15 15:33] LABS: METHADONE, UR NEGATIVE ng/ml (CUTOFF=300); PHENCYCLIDINE,URINE NEGATIVE ng/ml (CUTOFF=25); URINE AMPHETAMINES NEGATIVE ng/ml (CUTOFF=500); URINE BARBITURATES NEGATIVE ng/ml (CUTOFF=200); URINE BENZODIAZEPINES NEGATIVE ng/ml (CUTOFF=200)
[2019-05-15 15:45] LABS: COCAINE, UR POSITIVE ng/ml (CUTOFF=300); OPIATES, URI POSITIVE ng/ml (CUTOFF=300)
[2019-05-15 16:03] VITALS: BP 113/64; PULSE 68; TEMP 98.2
== END 2019-05-15 16:16 | disposition home or self-care (01) ==
LOC: JER 11:56
DX: Z13.89 Encounter for screening for other disorder (principal); Z88.6 Allergy status to analgesic agent; Z88.8 Allergy status to other drugs, medicaments and biological substances; B19.20 Unspecified viral hepatitis C without hepatic coma; F41.8 Other specified anxiety disorders; Z87.891 Personal history of nicotine dependence
CPT/HCPCS: 36415; 80053; 80307; 81003; 84703; 85025; 87086; 93005; 93010; 99282-25

== ENCOUNTER 2019-05-15 16:35 | Inpatient (IN) | payer OTHER ==
[2019-05-15 19:20] VITALS: BMI 22.6
--- NOTE | 2019-05-15 23:02 | HP ---
COWS - Scale Resting Pulse: 0= [place] 80 or Below Sweatin= Chills/Flushing Restless Observation: 3= Extraneous Movement Pupil Size: 2= Moderately Dilated (Pupils = 4 mm) Bone or Joint Aches: 2= Severe Diffuse Aches Runny Nose/ Eye Tearin= Runny Nose/Eyes GI Upset > 30mins: 1= Stomach Cramp Tremor Observation: 4= Gross Tremor/Twitching Yawning Observation: 0= None Anxiety or Irritability: 1=Feels Anxious/Irritable Goose Flesh Skin: 0=Smooth Skin COWS Score: 16 CIWA Score - Admission Criteria OASAS Guidelines: Admission for Medically Managed Detox: Requires at least one of the followin. CIWA greater than 12 2. Seizures within the past 24 hours 3. Delirium tremens within the past 24 hours 4. Hallucinations within the past 24 hours 5. Acute intervention needed for co occurring medical disorder 6. Acute intervention needed for co occurring psychiatric disorder 7. Severe withdrawal that cannot be handled at a lower level of care (continued vomiting, continued diarrhea, abnormal vital signs) requiring intravenous medication and/or fluids 8. Admitting History and Physical - Smoking History Smoking history: Never smoked Have you smoked in the past 12 months: Yes Aproximately how many cigarettes per day: 20 - Alcohol/Substance Use Hx Alcohol Use: No Admission ROS S - HPI Chief Complaint: Here because I want to get clean. Allergies/Adverse Reactions: Allergies Allergy/AdvReac Type Severity Reaction Status Date / Time codeine Allergy Verified 05/15/19 19:04 piperacillin [From Zosyn] AdvReac Mild Itching Verified 05/15/19 19:04 tazobactam [From Zosyn] AdvReac Mild Itching Verified 05/15/19 19:04 History of Present Illness: 33 yo w/ opioid use disorder w/ withdrawal symptoms seeking detox. Seen in [facility] earlier today and referred to [facility] for Detox. 05/15/19 EKG - NSR. RAJI: 0.0 UTox: + ALY/FEN/MOP HCG: Neg Denies seizures. Hx: blackouts. 1 Overdose in October 2018. Heroin use began at age 31. Currently uses 12-15 bags/day, IV x 1 year. Denies sharing needles or works. Has Narcan at home. Stopped Suboxone in November 2108. Cocaine use began at age 16. Currently uses IV and smokes. Uses 1 bag/day. Nicotine use began at age 13. Smokes 1PPD> Denies alcohol or beer. PMHx: Asthma. (last exacerbation 10 years ago); MHHx: Depression and anxiety. Denies thoughts of harming self or others. Last saw MH Provider September 2018. Was on Depakote, Klonopin, [place] SHx: Domiciled. Employed. Denies legal issues. Patient Name: Anabella King Date: 1985 Address: [address] [place] [address] Sex: Female Rx Written Rx Dispensed Drug Quantity Days Supply Prescriber Name 12/07/2018 12/09/2018 buprenorphine-naloxone 12-3 mg sl film 14 14 Lobito Hines MD 11/29/2018 12/03/2018 buprenorphine-naloxone 12-3 mg sl film 7 7 Lobito Hines MD 11/08/2018 11/09/2018 buprenorphine-naloxone 12-3 mg sl film 21 21 Lobito Hines MD 10/30/2018 10/31/2018 buprenorphine-naloxone 12-3 mg sl film 7 7 Lobito Hines MD 10/17/2018 10/21/2018 buprenorphine-naloxone 12-3 mg sl film 7 7 Lobito Hines MD 10/05/2018 10/11/2018 buprenorphine-naloxone 12-3 mg sl film 7 7 Lobito Hines MD 10/11/2018 10/11/2018 alprazolam 1 mg tablet 60 30 AbellarIbeth mcconnell MD 10/11/2018 10/11/2018 clonazepam 1 mg tablet 60 30 AbellardIbeth MD 09/28/2018 09/28/2018 buprenorphine-naloxone 12-3 mg sl film 7 7 Lobito Hines MD 09/21/2018 09/27/2018 buprenorphine-naloxone 12-3 mg sl film 7 7 Lobito Hines MD 08/29/2018 08/29/2018 clonazepam 1 mg tablet 60 30 AbellardIbeth MD 08/29/2018 08/29/2018 alprazolam 1 mg tablet 60 30 AbIbeth thrasher MD 07/25/2018 07/25/2018 clonazepam 1 mg tablet 60 30 AbIbeth thrasher MD 07/25/2018 07/25/2018 alprazolam 1 mg tablet 60 30 AbellardIbeth MD 07/21/2018 07/21/2018 suboxone 12 mg-3 mg sl film 15 15 Osmany Melo 06/22/2018 06/24/2018 alprazolam 1 mg tablet 60 30 Abellard, Ibeth FRANCIS 06/20/2018 06/23/2018 suboxone 12 mg-3 mg sl film 25 30 Kaykay, Humberto 06/22/2018 06/23/2018 clonazepam 1 mg tablet 60 30 Abellard, Ibeth FRANCIS 06/20/2018 06/20/2018 suboxone 12 mg-3 mg sl film 5 5 Kaykay, Humberto 05/26/2018 05/27/2018 suboxone 8 mg-2 mg sl film 13 13 Fabricio Russell) 05/26/2018 05/27/2018 suboxone 2 mg-0.5 mg sl film 26 13 Fabricio Russell) 05/26/2018 05/26/2018 suboxone 4 mg-1 mg sl film 1 1 Fabricio Russell) 05/19/2018 05/19/2018 clonazepam 1 mg tablet 60 30 Abellard, Robin 05/19/2018 05/19/2018 alprazolam 1 mg tablet 60 30 Abellard, Robin Exam Limitations: No Limitations - Ebola screening Have you traveled outside of the country in the last 21 days: No (N) Have you had contact with anyone from an Ebola affected area: No Have you been sick,other than usual withdrawal symptoms: No Do you have a fever: No - Review of Systems Constitutional: Chills, Diaphoresis, Changes in sleep (Difficulty falling and staying asleep. No meds), Unintentional Wgt. Loss (20 lb weight loss in 2 months ) EENT: reports: Blurred Vision, Nose Congestion Respiratory: reports: No Symptoms reported Cardiac: reports: No Symptoms Reported GI: reports: Abdominal cramping : reports: Urgency Musculoskeletal: reports: Back Pain (r/t withdrawal), Joint Pain (r/t withdrawal ) Integumentary: reports: No Symptoms Reported Neuro: reports: Headache (Temporal dull headache. "4-5". Denies head injury), Tremors Endocrine: reports: No Symptoms Reported Hematology: reports: No Symptoms Reported Psychiatric: reports: Judgement Intact, Orientated x3, Agitated, Anxious, Depressed (Denies thoughts of harming self or others.) Other Systems: Reviewed and Negative Patient History - Patient Medical History Hx Chronic Obstructive Pulmonary Disease (COPD): No Hx Gastrointestinal Disorders: Yes (HEP C) - PPD History Previous Implant?: Yes Documented Results: Negative w/o proof Implanted On Prior R Admission?: Yes PPD to be Administered?: Yes - Reproductive History Patient is a Female of Child Bearing Age (11 -55 yrs old): Yes Last Menstrual Period: 03/30/19 Patient : No - Smoking Cessation Smoking history: Current every day smoker Have you smoked in the past 12 months: Yes Aproximately how many cigarettes per day: 20 Hx Chewing Tobacco Use: No Initiated information on smoking cessation: Yes 'Breaking Loose' booklet given: 05/15/19 - Substance & Tx. History Hx Alcohol Use: No Hx Substance Use: Yes Substance Use Type: Cocaine, Heroin, Opiates Hx Substance Use Treatment: Yes (rehab; Was on Suboxone) - Substances abused Heroin Substance route: Injection Frequency: Daily Amount used: 12 BAGS Age of first use: 31 Date of last use: 05/15/19 Cocaine Substance route: Injection Frequency: 3-6 times per week Amount used: 1 BAG Age of first use: 16 Date of last use: 05/14/19 Admission Physical Exam S - Vital Signs Vital Signs: Vital Signs - 24 hr 05/15/19 05/15/19 18:53 19:20 Temperature 100.0 F H 100.0 F H Pulse Rate 99 H 99 H Respiratory 18 18 Rate Blood Pressure 115/63 115/63 - Physical General Appearance: Yes: Nourished, Mild Distress, Thin, Tremorous, Anxious HEENTM: Yes: EOMI, Hearing grossly Normal, Normocephalic, Normal Voice, RAMON ( Pupils = 4 mm), Nasal Congestion, Rhinorrhea Respiratory: Yes: Lungs Clear (Pulse Ox = 98%), Normal Breath Sounds, No Respiratory Distress Neck: Yes: No masses,lesions,Nodules, Supple Breast: Yes: Breast Exam Deferred Cardiology: Yes: Regular Rhythm, Regular Rate, S1, S2 Abdominal: Yes: Non Tender, Flat, Soft, Increased Bowel Sounds Genitourinary: Yes: Within Normal Limits Back: Yes: Normal Inspection Musculoskeletal: Yes: full range of Motion, Gait Steady Extremities: Yes: Normal Capillary Refill (Pulses +), Tremors Neurological: Yes: clutch inspector II-XII NML intact, Fully Oriented, Alert, Motor Strength 5/5, Normal Mood/Affect Integumentary: Yes: Normal Color, Warm, Track Singleton (Multiple track singleton on both forearms w/ increased induration, erythema and very, very warm) Lymphatic: Yes: Within Normal Limits - Diagnostic (1) History of asthma Current Visit: No Status: Chronic Comment: No exacerbation in years (2) Opioid dependence with withdrawal Current Visit: Yes Status: Acute (3) Nicotine dependence, unspecified, uncomplicated Current Visit: Yes Status: Chronic Qualifiers: Nicotine product type: cigarettes Qualified Code(s): F17.210 - Nicotine dependence, cigarettes, uncomplicated (4) Cocaine dependence, uncomplicated Current Visit: Yes Status: Chronic (5) Cellulitis Current Visit: Yes Status: Acute Qualifiers: Site of cellulitis: extremity Site of cellulitis of extremity: upper extremity Laterality: unspecified laterality Qualified Code(s): L03.119 - Cellulitis of unspecified part of limb Comment: Bilateral cellulitis both forearms (6) IVDU (intravenous drug user) Current Visit: Yes Status: Chronic Cleared for Admission S - Detox or Rehab [facility] Level of Care: Medically Managed Detox Regimen/Protocol: Methadone Claeared for Rehab Admission: No Breathalyzer - Breathalyzer Breathalyzer: 0 Urine Drug Screen - Test Device Lot number: [id number] Expiration date: 12/13/20 - Control Is test valid?: Yes - Results Drug screen NEGATIVE: No Urine drug screen results: ALY-Cocaine, FEN-Fentanyl, MOP-Opiates Inpatient Rehab Admission - Rehab Decision to Admit Inpatient rehab admission?: No
[2019-05-15] MEDS ORDERED: MAG HYDROX/AL HYDROX/SIMETH 30 ML UNIT-DOSE CUP PO PRN (23:24)
[2019-05-15] MEDS ORDERED: BISMUTH SUBSALICYLATE 524 MG/30 ML UD PO PRN (23:24)
[2019-05-15] MEDS ORDERED: MENTHOL/PHENOL 1 EACH UD MM PRN (23:24)
[2019-05-15] MEDS ORDERED: MELATONIN 5 MG TABLETS PO PRN (23:24)
[2019-05-15] MEDS ORDERED: MAGNESIUM CITRATE 300 ML BOTTLE PO PRN (23:24)
[2019-05-15] MEDS ORDERED: MAGNESIUM HYDROX 2400MG/30ML ORAL SUSPENSION 30 ML CUP PO PRN (23:24)
[2019-05-15] MEDS ORDERED: ACETAMINOPHEN 325 MG TABLET (FP) PO PRN ×2 (23:24)
[2019-05-15] MEDS ORDERED: METHADONE HCL 10 MG TABLET (FOR DETOX USE ONLY) PO ONE ×3 (23:53)
[2019-05-15] MEDS ORDERED: cloNIDine HCL 0.1 MG TABLET PO PRN (23:53)
[2019-05-15] MEDS: CEPHALEXIN MONOHYDRATE 500 MG CAPSULE (UD) PO SCH (23:57)
[2019-05-16] MEDS: CEPHALEXIN MONOHYDRATE 500 MG CAPSULE (UD) PO SCH ×4 (05:40→23:16)
[2019-05-16] MEDS ORDERED: METHADONE HCL 10 MG TABLET (FOR DETOX USE ONLY) ONE (08:54)
[2019-05-16] MEDS ORDERED: METHADONE HCL 5 MG TABLET (FOR DETOX USE ONLY) ONE (08:55)
[2019-05-16] MEDS: LACTOBACILLUS ACIDOPHILUS 1 TABLET PO SCH ×2 (09:45→22:00)
[2019-05-16] MEDS: PRENATAL VITAMINS W/ FOLIC ACID TABLET (FP) PO SCH (09:47)
[2019-05-16] MEDS: NICOTINE 21 MG/24 HOURS TOPICAL PATCH TD SCH (09:47)
--- NOTE | 2019-05-16 09:56 | PN ---
BHS COWS - Scale Resting Pulse: 0= [place] 80 or Below Sweatin= Chills/Flushing Restless Observation: 0= Sits Still Pupil Size: 1= Pupils >than Normal Bone or Joint Aches: 2= Severe Diffuse Aches Runny Nose/ Eye Tearin= Nasal Congestion GI Upset > 30mins: 1= Stomach Cramp Tremor Observation of Outstretched Hands: 2= Slight Tremor Visible Yawning Observation: 1= 1-2x During Session Anxiety or Irritability: 2=Irritable/Anxious Goose Flesh Skin: 3=Piloerection COWS Score: 14 BHS Progress Note (SOAP) Subjective: 33 years old female admitted on 05/15/19 for opiate withdrawal sx management treating with methadone detox regimen c/o chronic back aches lidocaine patch to lumbar spin c/o muscle spasm robaxin 500 mg po x 1 c/o stomack cramping bentyl 20 mg po x 1 Objective: 05/16/19 09:55 Vital Signs Temperature 98.4 F 05/16/19 06:30 Pulse Rate 79 05/16/19 06:30 Respiratory Rate 16 05/16/19 06:30 Blood Pressure 113/69 05/16/19 06:30 O2 Sat by Pulse Oximetry (%) 05/16/19 09:56 lab noted Assessment: 05/16/19 09:56 opiate withdrawal Plan: methadone regimen
[2019-05-16] MEDS ORDERED: METHOCARBAMOL 500 MG TABLET PO ONE (10:00)
[2019-05-16] MEDS ORDERED: DICYCLOMINE HCL 20 MG TABLET PO ONE (10:00)
[2019-05-16] MEDS ORDERED: DICYCLOMINE HCL 10 MG CAPSULE PO ONE (10:00)
[2019-05-16] MEDS ORDERED: METHADONE (DETOX) 20 MG, METHADONE (DETOX) 5 MG PO ONE (10:00)
[2019-05-16 10:31] LABS: HEMATOCRIT 34.8 % (32.4-45.2); HEMOGLOBIN 11.5 GM/dL (10.7-15.3); MCH 29.5 pg (25.7-33.7); MCHC 32.9 g/dl (32.0-36.0); MEAN CELL VOLUME 89.5 fl (80-96); MEAN PLT VOLUME 8.9 fl (7.5-11.1); PLATELET COUNT 338 K/MM3 (134-434); RBC 3.89 M/mm3 (3.60-5.2); RDW 14.5 % (11.6-15.6); WHITE BLOOD COUNT 7.6 K/mm3 (4.0-10.0)
[2019-05-16] MEDS: LIDOCAINE 5% TOPICAL PATCH TP SCH (10:32)
[2019-05-16 10:42] LABS: ALBUMIN 3.2 g/dl (3.4-5.0); BILIRUBIN,TOTAL 0.3 mg/dL (0.2-1); CALCIUM 8.4 mg/dL (8.5-10.1); CREATININE 0.6 mg/dL (0.55-1.3); POTASSIUM 4.2 mmol/L (3.5-5.1); TOT PROT 6.9 g/dl (6.4-8.2)
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
[2019-05-16 18:39] LABS: URINE APPEARANCE CLOUDY; URINE BILIRUBIN NEGATIVE (NEGATIVE); URINE COLOR YELLOW; URINE GLUCOSE (UA) NEGATIVE (NEGATIVE); URINE KETONE NEGATIVE (NEGATIVE); URINE LEUK ESTERASE NEGATIVE (NEGATIVE); URINE NITRITE NEGATIVE (NEGATIVE); URINE PROTEIN NEGATIVE (NEGATIVE)
[2019-05-16] MEDS: traZODone HCL 50 MG TABLET (FP) PO SCH (22:00)
[2019-05-16] MEDS: LIDOCAINE PATCH REMOVAL MC SCH (22:01)
[2019-05-16] MEDS: IBUPROFEN 400 MG TABLET (FP) PO PRN (22:01)
[2019-05-16] MEDS: THIAMINE HCL 100 MG TABLET (FP) PO SCH (22:01)
[2019-05-16] MEDS: NICOTINE POLACRILEX 2 MG GUM BUC PRN (22:04)
[2019-05-17] MEDS: CEPHALEXIN MONOHYDRATE 500 MG CAPSULE (UD) PO SCH ×4 (05:41→23:01)
[2019-05-17] MEDS: LACTOBACILLUS ACIDOPHILUS 1 TABLET PO SCH ×2 (09:33→22:09)
[2019-05-17] MEDS: NICOTINE 21 MG/24 HOURS TOPICAL PATCH TD SCH (09:34)
[2019-05-17] MEDS: PRENATAL VITAMINS W/ FOLIC ACID TABLET (FP) PO SCH (09:34)
[2019-05-17] MEDS: IBUPROFEN 400 MG TABLET (FP) PO PRN ×2 (09:35→22:08)
--- NOTE | 2019-05-17 09:40 | PN ---
BHS COWS - Scale Resting Pulse: 0= [place] 80 or Below Sweatin= Chills/Flushing Restless Observation: 0= Sits Still Pupil Size: 1= Pupils >than Normal Bone or Joint Aches: 2= Severe Diffuse Aches Runny Nose/ Eye Tearin= Nasal Congestion GI Upset > 30mins: 3= Vomiting/Diarrhea Tremor Observation of Outstretched Hands: 1= Tremor [place], Not Seen Yawning Observation: 1= 1-2x During Session Anxiety or Irritability: 2=Irritable/Anxious Goose Flesh Skin: 0=Smooth Skin COWS Score: 12 S Progress Note (SOAP) Subjective: 33 years old female admitted on 05/15/19 for opiate withdrawal sx management treating with methadone detox regimen feeling ok today cold and hot reports vomiting x 1 after breakfast patient refuses antiemetic medication "I will be ok" tolerated fluid well encourage picking up narcan from pharmacy Objective: 05/17/19 09:39 Vital Signs Temperature 97.5 F L 05/17/19 09:09 Pulse Rate 74 05/17/19 09:09 Respiratory Rate 16 05/17/19 09:09 Blood Pressure 109/76 05/17/19 09:09 O2 Sat by Pulse Oximetry (%) Laboratory Last Values WBC 7.6 K/mm3 (4.0-10.0) 05/16/19 07:40 RBC 3.89 M/mm3 (3.60-5.2) 05/16/19 07:40 Hgb 11.5 GM/dL (10.7-15.3) 05/16/19 07:40 Hct 34.8 % (32.4-45.2) 05/16/19 07:40 MCV 89.5 fl (80-96) 05/16/19 07:40 MCH 29.5 pg (25.7-33.7) 05/16/19 07:40 MCHC 32.9 g/dl (32.0-36.0) 05/16/19 07:40 RDW 14.5 % (11.6-15.6) 05/16/19 07:40 Plt Count 338 K/MM3 (134-434) 05/16/19 07:40 MPV 8.9 fl (7.5-11.1) 05/16/19 07:40 Sodium 139 mmol/L (136-145) 05/16/19 07:40 Potassium 4.2 mmol/L (3.5-5.1) 05/16/19 07:40 Chloride 105 mmol/L (98-107) 05/16/19 07:40 Carbon Dioxide 27 mmol/L (21-32) 05/16/19 07:40 Anion Gap 7 MMOL/L (8-16) L 05/16/19 07:40 BUN 10.0 mg/dL (7-18) 05/16/19 07:40 Creatinine 0.6 mg/dL (0.55-1.3) 05/16/19 07:40 Est GFR (CKD-EPI)AfAm 137.83 05/16/19 07:40 Est GFR (CKD-EPI)NonAf 118.92 05/16/19 07:40 Random Glucose 104 mg/dL (74-106) 05/16/19 07:40 Calcium 8.4 mg/dL (8.5-10.1) L 05/16/19 07:40 Total Bilirubin 0.3 mg/dL (0.2-1) 05/16/19 07:40 AST 14 U/L (15-37) L 05/16/19 07:40 ALT 20 U/L (13-61) 05/16/19 07:40 Alkaline Phosphatase 79 U/L (45-117) 05/16/19 07:40 Total Protein 6.9 g/dl (6.4-8.2) 05/16/19 07:40 Albumin 3.2 g/dl (3.4-5.0) L 05/16/19 07:40 Urine Color Yellow 05/16/19 15:21 Urine Appearance Cloudy 05/16/19 15:21 Urine pH 7.0 (5.0-8.0) D 05/16/19 15:21 Ur Specific [place] 1.030 (1.010-1.035) 05/16/19 15:21 Urine Protein Negative (NEGATIVE) 05/16/19 15:21 Urine Glucose (UA) Negative (NEGATIVE) 05/16/19 15:21 Urine Ketones Negative (NEGATIVE) 05/16/19 15:21 Urine Blood Negative (NEGATIVE) 05/16/19 15:21 Urine Nitrite Negative (NEGATIVE) 05/16/19 15:21 Urine Bilirubin Negative (NEGATIVE) 05/16/19 15:21 Urine Urobilinogen 1.0 mg/dL (0.2-1.0) 05/16/19 15:21 Ur Leukocyte Esterase Negative (NEGATIVE) 05/16/19 15:21 Valproic Acid 4.0 ug/mL (50-100) L 05/16/19 07:40 RPR Titer Nonreactive (NONREACTIVE) 05/16/19 07:40 lab noted Assessment: 05/17/19 09:39 opiate withdrawal Plan: methadone regimen
[2019-05-17] MEDS ORDERED: METHADONE HCL 10 MG TABLET (FOR DETOX USE ONLY) PO ONE (10:00)
[2019-05-17] MEDS: LIDOCAINE 5% TOPICAL PATCH TP SCH (14:12)
[2019-05-17] MEDS: NICOTINE POLACRILEX 2 MG GUM BUC PRN (18:50)
[2019-05-17] MEDS: traZODone HCL 50 MG TABLET (FP) PO SCH (22:09)
[2019-05-17] MEDS: LIDOCAINE PATCH REMOVAL MC SCH (22:09)
[2019-05-17] MEDS: THIAMINE HCL 100 MG TABLET (FP) PO SCH (22:09)
[2019-05-18] MEDS: CEPHALEXIN MONOHYDRATE 500 MG CAPSULE (UD) PO SCH ×4 (06:16→23:06)
[2019-05-18] MEDS ORDERED: METHADONE HCL 10 MG TABLET (FOR DETOX USE ONLY) ONE (09:26)
[2019-05-18] MEDS ORDERED: METHADONE HCL 5 MG TABLET (FOR DETOX USE ONLY) ONE (09:27)
[2019-05-18] MEDS: LIDOCAINE 5% TOPICAL PATCH TP SCH (10:00)
[2019-05-18] MEDS ORDERED: METHADONE (DETOX) 10 MG, METHADONE (DETOX) 5 MG PO ONE (10:00)
[2019-05-18] MEDS: LACTOBACILLUS ACIDOPHILUS 1 TABLET PO SCH ×2 (10:02→22:17)
[2019-05-18] MEDS: PRENATAL VITAMINS W/ FOLIC ACID TABLET (FP) PO SCH (10:02)
[2019-05-18] MEDS: NICOTINE 21 MG/24 HOURS TOPICAL PATCH TD SCH (10:04)
--- NOTE | 2019-05-18 12:56 | PN ---
BHS COWS - Scale Resting Pulse: 0= [place] 80 or Below Sweatin= Chills/Flushing Restless Observation: 1= Difficult to Sit Still Pupil Size: 1= Pupils >than Normal Bone or Joint Aches: 2= Severe Diffuse Aches Runny Nose/ Eye Tearin= None GI Upset > 30mins: 1= Stomach Cramp Tremor Observation of Outstretched Hands: 1= Tremor [place], Not Seen Yawning Observation: 0= None Anxiety or Irritability: 1=Feels Anxious/Irritable Goose Flesh Skin: 0=Smooth Skin COWS Score: 8 BHS Progress Note (SOAP) Subjective: interrupted sleep, sweats, shakes, achy Objective: 05/18/19 12:54 Vital Signs Temperature 97.9 F 05/18/19 09:14 Pulse Rate 72 05/18/19 09:14 Respiratory Rate 18 05/18/19 09:14 Blood Pressure 124/75 05/18/19 09:14 O2 Sat by Pulse Oximetry (%) Laboratory Tests 05/16/19 05/16/19 05/16/19 07:40 07:40 07:40 WBC 7.6 RBC 3.89 Hgb 11.5 Hct 34.8 MCV 89.5 MCH 29.5 MCHC 32.9 RDW 14.5 Plt Count 338 MPV 8.9 Sodium 139 Potassium 4.2 Chloride 105 Carbon Dioxide 27 Anion Gap 7 L BUN 10.0 Creatinine 0.6 Est GFR (CKD-EPI)AfAm 137.83 Est GFR (CKD-EPI)NonAf 118.92 Random Glucose 104 Calcium 8.4 L Total Bilirubin 0.3 AST 14 L ALT 20 Alkaline Phosphatase 79 Total Protein 6.9 Albumin 3.2 L Urine Color Urine Appearance Urine pH Ur Specific [place] Urine Protein Urine Glucose (UA) Urine Ketones Urine Blood Urine Nitrite Urine Bilirubin Urine Urobilinogen Ur Leukocyte Esterase Valproic Acid 4.0 L RPR Titer 05/16/19 05/16/19 07:40 15:21 WBC RBC Hgb Hct MCV MCH MCHC RDW Plt Count MPV Sodium Potassium Chloride Carbon Dioxide Anion Gap BUN Creatinine Est GFR (CKD-EPI)AfAm Est GFR (CKD-EPI)NonAf Random Glucose Calcium Total Bilirubin AST ALT Alkaline Phosphatase Total Protein Albumin Urine Color Yellow Urine Appearance Cloudy Urine pH 7.0 D Ur Specific [place] 1.030 Urine Protein Negative Urine Glucose (UA) Negative Urine Ketones Negative Urine Blood Negative Urine Nitrite Negative Urine Bilirubin Negative Urine Urobilinogen 1.0 Ur Leukocyte Esterase Negative Valproic Acid RPR Titer Nonreactive pt aox3 in nad ambulating Assessment: 05/18/19 12:55 withdrawal sx's Plan: cont. detox increase fluids motrin prn flexeril tid/prn
[2019-05-18] MEDS: CYCLOBENZAPRINE HCL 5 MG TABLET PO SCH ×2 (13:43→22:17)
[2019-05-18] MEDS: IBUPROFEN 400 MG TABLET (FP) PO PRN (17:17)
[2019-05-18] MEDS: NICOTINE POLACRILEX 2 MG GUM BUC PRN (20:42)
[2019-05-18] MEDS: LIDOCAINE PATCH REMOVAL MC SCH (22:17)
[2019-05-18] MEDS: THIAMINE HCL 100 MG TABLET (FP) PO SCH (22:17)
[2019-05-18] MEDS: traZODone HCL 50 MG TABLET (FP) PO SCH (22:17)
[2019-05-19] MEDS: CEPHALEXIN MONOHYDRATE 500 MG CAPSULE (UD) PO SCH ×3 (05:12→17:49)
[2019-05-19] MEDS: CYCLOBENZAPRINE HCL 5 MG TABLET PO SCH ×3 (05:12→22:25)
[2019-05-19] MEDS ORDERED: METHADONE HCL 10 MG TABLET (FOR DETOX USE ONLY) PO ONE (10:00)
[2019-05-19] MEDS: LIDOCAINE 5% TOPICAL PATCH TP SCH (10:07)
[2019-05-19] MEDS: LACTOBACILLUS ACIDOPHILUS 1 TABLET PO SCH ×2 (10:07→22:25)
[2019-05-19] MEDS: PRENATAL VITAMINS W/ FOLIC ACID TABLET (FP) PO SCH (10:07)
[2019-05-19] MEDS: NICOTINE 21 MG/24 HOURS TOPICAL PATCH TD SCH (10:08)
--- NOTE | 2019-05-19 10:37 | PN ---
S COWS - Scale Resting Pulse: 0= [place] 80 or Below Sweatin= No chills or Flushing Restless Observation: 0= Sits Still Pupil Size: 0= Normal to Room Light Bone or Joint Aches: 2= Severe Diffuse Aches Runny Nose/ Eye Tearin= None GI Upset > 30mins: 0= None Tremor Observation of Outstretched Hands: 0= None Yawning Observation: 0= None Anxiety or Irritability: 2=Irritable/Anxious Goose Flesh Skin: 0=Smooth Skin COWS Score: 4 BHS Progress Note (SOAP) Subjective: c/o mild withdrawal symptoms. Objective: 05/19/19 10:35 Vital Signs 05/19/19 05/19/19 05/19/19 03:30 06:06 09:09 Temperature 96.8 F L 97.1 F L Pulse Rate 67 91 H Respiratory 16 16 16 Rate Blood Pressure 103/64 127/71 Laboratory Last Values WBC 7.6 K/mm3 (4.0-10.0) 05/16/19 07:40 RBC 3.89 M/mm3 (3.60-5.2) 05/16/19 07:40 Hgb 11.5 GM/dL (10.7-15.3) 05/16/19 07:40 Hct 34.8 % (32.4-45.2) 05/16/19 07:40 MCV 89.5 fl (80-96) 05/16/19 07:40 MCH 29.5 pg (25.7-33.7) 05/16/19 07:40 MCHC 32.9 g/dl (32.0-36.0) 05/16/19 07:40 RDW 14.5 % (11.6-15.6) 05/16/19 07:40 Plt Count 338 K/MM3 (134-434) 05/16/19 07:40 MPV 8.9 fl (7.5-11.1) 05/16/19 07:40 Sodium 139 mmol/L (136-145) 05/16/19 07:40 Potassium 4.2 mmol/L (3.5-5.1) 05/16/19 07:40 Chloride 105 mmol/L (98-107) 05/16/19 07:40 Carbon Dioxide 27 mmol/L (21-32) 05/16/19 07:40 Anion Gap 7 MMOL/L (8-16) L 05/16/19 07:40 BUN 10.0 mg/dL (7-18) 05/16/19 07:40 Creatinine 0.6 mg/dL (0.55-1.3) 05/16/19 07:40 Est GFR (CKD-EPI)AfAm 137.83 05/16/19 07:40 Est GFR (CKD-EPI)NonAf 118.92 05/16/19 07:40 Random Glucose 104 mg/dL (74-106) 05/16/19 07:40 Calcium 8.4 mg/dL (8.5-10.1) L 05/16/19 07:40 Total Bilirubin 0.3 mg/dL (0.2-1) 05/16/19 07:40 AST 14 U/L (15-37) L 05/16/19 07:40 ALT 20 U/L (13-61) 05/16/19 07:40 Alkaline Phosphatase 79 U/L (45-117) 05/16/19 07:40 Total Protein 6.9 g/dl (6.4-8.2) 05/16/19 07:40 Albumin 3.2 g/dl (3.4-5.0) L 05/16/19 07:40 Urine Color Yellow 05/16/19 15:21 Urine Appearance Cloudy 05/16/19 15:21 Urine pH 7.0 (5.0-8.0) D 05/16/19 15:21 Ur Specific [place] 1.030 (1.010-1.035) 05/16/19 15:21 Urine Protein Negative (NEGATIVE) 05/16/19 15:21 Urine Glucose (UA) Negative (NEGATIVE) 05/16/19 15:21 Urine Ketones Negative (NEGATIVE) 05/16/19 15:21 Urine Blood Negative (NEGATIVE) 05/16/19 15:21 Urine Nitrite Negative (NEGATIVE) 05/16/19 15:21 Urine Bilirubin Negative (NEGATIVE) 05/16/19 15:21 Urine Urobilinogen 1.0 mg/dL (0.2-1.0) 05/16/19 15:21 Ur Leukocyte Esterase Negative (NEGATIVE) 05/16/19 15:21 Valproic Acid 4.0 ug/mL (50-100) L 05/16/19 07:40 RPR Titer Nonreactive (NONREACTIVE) 05/16/19 07:40 Labs noted. Assessment: 05/19/19 10:36 AOX3, in no acute respiratory distress. Full ROM, ambulating in the unit. Mild Withdrawal symptoms. For d/c tomorrow. Pt is on Keflex 500mg po Q6hrs x10 started on 05/16/19 for cellulitis of b/l forearms. Will send prescription to pt's preferred pharmacy for the remaining 6days to complete her treatment regimen. 05/19/19 15:14 Plan: continue detox. D/C in AM.
[2019-05-19] MEDS: NICOTINE POLACRILEX 2 MG GUM BUC PRN (22:25)
[2019-05-19] MEDS: traZODone HCL 50 MG TABLET (FP) PO SCH (22:25)
[2019-05-19] MEDS: THIAMINE HCL 100 MG TABLET (FP) PO SCH (22:27)
[2019-05-19] MEDS: LIDOCAINE PATCH REMOVAL MC SCH (23:48)
[2019-05-20] MEDS: CEPHALEXIN MONOHYDRATE 500 MG CAPSULE (UD) PO SCH ×3 (01:30→11:36)
[2019-05-20] MEDS ORDERED: METHADONE HCL 5 MG TABLET (FOR DETOX USE ONLY) PO ONE (06:00)
[2019-05-20 06:08] VITALS: BP 108/61; PULSE 62; TEMP 97
[2019-05-20] MEDS: CYCLOBENZAPRINE HCL 5 MG TABLET PO SCH (06:57)
[2019-05-20] MEDS: NICOTINE 21 MG/24 HOURS TOPICAL PATCH TD SCH (09:09)
[2019-05-20] MEDS: PRENATAL VITAMINS W/ FOLIC ACID TABLET (FP) PO SCH (09:09)
[2019-05-20] MEDS: LACTOBACILLUS ACIDOPHILUS 1 TABLET PO SCH (09:09)
[2019-05-20] MEDS: LIDOCAINE 5% TOPICAL PATCH TP SCH (09:09)
--- NOTE | 2019-05-20 14:12 | DS ---
[facility] Detox Discharge Summary Admission Date: 05/15/19 Discharge Date: 05/20/19 - History Present History: Opioid Dependence Additional Comments: 33 years old female admitted on 05/15/19 for opiate withdrawal sx management treated with methadone detox regimen patient tolerated well alert oriented x 3 cardiac [id number] regular rate rhythm respiratory clear lungs bilaterally on auscultation extremities full range of motion - Physical Exam Results Vital Signs: Vital Signs Temperature 97 F L 05/20/19 06:07 Pulse Rate 62 05/20/19 06:07 Respiratory Rate 16 05/20/19 06:07 Blood Pressure 108/61 05/20/19 06:07 O2 Sat by Pulse Oximetry (%) Pertinent Admission Physical Exam Findings: opiate withdrawal Laboratory Last Values WBC 7.6 K/mm3 (4.0-10.0) 05/16/19 07:40 RBC 3.89 M/mm3 (3.60-5.2) 05/16/19 07:40 Hgb 11.5 GM/dL (10.7-15.3) 05/16/19 07:40 Hct 34.8 % (32.4-45.2) 05/16/19 07:40 MCV 89.5 fl (80-96) 05/16/19 07:40 MCH 29.5 pg (25.7-33.7) 05/16/19 07:40 MCHC 32.9 g/dl (32.0-36.0) 05/16/19 07:40 RDW 14.5 % (11.6-15.6) 05/16/19 07:40 Plt Count 338 K/MM3 (134-434) 05/16/19 07:40 MPV 8.9 fl (7.5-11.1) 05/16/19 07:40 Sodium 139 mmol/L (136-145) 05/16/19 07:40 Potassium 4.2 mmol/L (3.5-5.1) 05/16/19 07:40 Chloride 105 mmol/L (98-107) 05/16/19 07:40 Carbon Dioxide 27 mmol/L (21-32) 05/16/19 07:40 Anion Gap 7 MMOL/L (8-16) L 05/16/19 07:40 BUN 10.0 mg/dL (7-18) 05/16/19 07:40 Creatinine 0.6 mg/dL (0.55-1.3) 05/16/19 07:40 Est GFR (CKD-EPI)AfAm 137.83 05/16/19 07:40 Est GFR (CKD-EPI)NonAf 118.92 05/16/19 07:40 Random Glucose 104 mg/dL (74-106) 05/16/19 07:40 Calcium 8.4 mg/dL (8.5-10.1) L 05/16/19 07:40 Total Bilirubin 0.3 mg/dL (0.2-1) 05/16/19 07:40 AST 14 U/L (15-37) L 05/16/19 07:40 ALT 20 U/L (13-61) 05/16/19 07:40 Alkaline Phosphatase 79 U/L (45-117) 05/16/19 07:40 Total Protein 6.9 g/dl (6.4-8.2) 05/16/19 07:40 Albumin 3.2 g/dl (3.4-5.0) L 05/16/19 07:40 Urine Color Yellow 05/16/19 15:21 Urine Appearance Cloudy 05/16/19 15:21 Urine pH 7.0 (5.0-8.0) D 05/16/19 15:21 Ur Specific Hallie 1.030 (1.010-1.035) 05/16/19 15:21 Urine Protein Negative (NEGATIVE) 05/16/19 15:21 Urine Glucose (UA) Negative (NEGATIVE) 05/16/19 15:21 Urine Ketones Negative (NEGATIVE) 05/16/19 15:21 Urine Blood Negative (NEGATIVE) 05/16/19 15:21 Urine Nitrite Negative (NEGATIVE) 05/16/19 15:21 Urine Bilirubin Negative (NEGATIVE) 05/16/19 15:21 Urine Urobilinogen 1.0 mg/dL (0.2-1.0) 05/16/19 15:21 Ur Leukocyte Esterase Negative (NEGATIVE) 05/16/19 15:21 Valproic Acid 4.0 ug/mL (50-100) L 05/16/19 07:40 RPR Titer Nonreactive (NONREACTIVE) 05/16/19 07:40 lab noted - Treatment Hospital Course: Detox Protocol Followed, Detoxed Safely, Responded well, Discharged Condition Good, Rehab Referral Accepted Patient has Accepted a Rehab Referral to: [facility] - Medication Discharge Medications: Ambulatory Orders Clonazepam 1 mg PO DAILY 09/08/18 Divalproex [Depakote -] 0 mg PO DAILY 09/08/18 Naloxone HCl [Narcan] 4 mg NS ASDIR PRN #1 spray 05/17/19 Cephalexin [Keflex] 500 mg PO Q6H 6 Days #24 capsule 05/19/19 - Diagnosis (1) Asthma Status: Chronic Qualifiers: Asthma severity: mild Asthma persistence: intermittent Asthma complication type: with status asthmaticus Qualified Code(s): J45.22 - Mild intermittent asthma with status asthmaticus (2) Nicotine dependence Status: Acute Qualifiers: Nicotine product type: cigarettes Substance use status: in withdrawal Qualified Code(s): F17.213 - Nicotine dependence, cigarettes, with withdrawal (3) Opioid dependence with withdrawal Status: Acute (4) Substance induced mood disorder Status: Suspected - AMA Did Patient Leave Against Medical Advice: No COWS (PN) - Opiate Withdrawal Resting Pulse: 0= DE 80 or Below Sweatin= No chills or Flushing Restless Observation: 0= Sits Still Pupil Size: 0= Normal to Room Light Bone or Joint Aches: 0= None Runny Nose/ Eye Tearin= None GI Upset > 30mins: 0= None Tremor Observation of Outstretched Hands: 0= None Yawning Observation: 0= None Anxiety or Irritability: 1=Feels Anxious/Irritable Goose Flesh Skin: 0=Smooth Skin COWS Score: 1
== END 2019-05-20 08:54 | disposition home or self-care (01) | DRG 773 ==
LOC: YASAS 16:35 → Y3N 23:03
PROVIDERS: ADMIT Allergy & Immunology; ATTEND Allergy & Immunology
PROC: HZ2ZZZZ Detoxification Services for Substance Abuse Treatment (ICD-10-PCS; principal; 2019-05-15)
DX: F11.23 Opioid dependence with withdrawal (principal); F14.20 Cocaine dependence, uncomplicated; F17.213 Nicotine dependence, cigarettes, with withdrawal; F19.24 Other psychoactive substance dependence with psychoactive substance-induced mood disorder; F19.282 Other psychoactive substance dependence with psychoactive substance-induced sleep disorder; J45.22 Mild intermittent asthma with status asthmaticus; L03.114 Cellulitis of left upper limb; L03.113 Cellulitis of right upper limb; Z88.1 Allergy status to other antibiotic agents; Z88.5 Allergy status to narcotic agent; Z88.8 Allergy status to other drugs, medicaments and biological substances; Z62.810 Personal history of physical and sexual abuse in childhood; Z91.410 Personal history of adult physical and sexual abuse
CPT/HCPCS: 36415; 80053; 80164; 81003; 85027; 86593

== ENCOUNTER 2021-07-02 22:50 | Inpatient (IN) | payer OTHER ==
[2021-07-02] MEDS ORDERED: AMPICILLIN - 2 GM in SODIUM CHLORIDE 100 ML IVPB ONE (23:34)
[2021-07-02] MEDS ORDERED: BETAMET ACET/BETAMET NA PH 30 MG/5 ML VIAL IM ONE (23:35)
[2021-07-02] MEDS ORDERED: AMPICILLIN SODIUM 2 GM VIAL ONE (23:47)
[2021-07-03 00:31] LABS: BASO % 0.4 % (0-2.0); EOS % 1.7 % (0-4.5); LYMPH % 17.4 % (8-40); MCH 29.3 pg (25.7-33.7); MCHC 33.4 g/dl (32.0-36.0); MEAN CELL VOLUME 87.6 fl (80-96); MEAN PLT VOLUME 9.9 fl (7.5-11.1); MONO % 6.7 % (3.8-10.2); NEUT % 73.8 % (42.8-82.8); PLATELET COUNT 263 10^3/uL (134-434); RBC 3.76 M/mm3 (3.60-5.2); RDW 13.2 % (11.6-15.6); WHITE BLOOD COUNT 12.2 K/mm3 (4.0-10.0)
[2021-07-03 00:38] LABS: INR 0.9 (0.83-1.09); PROTHROMBIN TIME (PATIENT) 10.3 SEC (9.7-13.0)
[2021-07-03 00:42] LABS: COCAINE, UR NEGATIVE (NEGATIVE); METHADONE, UR NEGATIVE (NEGATIVE); OPIATES, URI NEGATIVE (NEGATIVE); PHENCYCLIDINE,URINE NEGATIVE (NEGATIVE); URINE AMPHETAMINES NEGATIVE (NEGATIVE); URINE BARBITURATES NEGATIVE (NEGATIVE); URINE BENZODIAZEPINES NEGATIVE (NEGATIVE)
[2021-07-03] MEDS ORDERED: BETAMET ACET/BETAMET NA PH 30 MG/5 ML VIAL ONE (00:46)
[2021-07-03 00:52] LABS: CALCIUM 9.9 mg/dL (8.5-10.1)
[2021-07-03 00:53] LABS: BLOOD UREA NITROGEN 6.9 mg/dL (7-18)
[2021-07-03 00:56] LABS: CREATININE 0.4 mg/dL (0.55-1.3)
[2021-07-03] MEDS: ELECTROLYTE-148 SOLN 1,000 ML IV SCH (00:59)
[2021-07-03 02:24] VITALS: BMI 31.6
[2021-07-03] MEDS ORDERED: FENTANYL/BUPIVACAINE/NS/PF - PCEA - 50 ML DISP.SYRIN EP ONE ×2 (02:39→06:02)
[2021-07-03] MEDS ORDERED: NALOXONE HCL 0.4 MG/ML VIAL IVPUSH PRN (02:44)
[2021-07-03] MEDS ORDERED: FENTANYL/BUPIVACAINE/NS/PF - PCEA - 50 ML DISP.SYRIN EP SCH (02:45)
[2021-07-03] MEDS ORDERED: AMPICILLIN - 1 GM in SODIUM CHLORIDE 100 ML IVPB SCH (03:34)
[2021-07-03] MEDS ORDERED: LIDOCAINE HCL 1% PRESERVATIVE FREE - 30ML VIAL ONE (06:04)
[2021-07-03] MEDS ORDERED: BISACODYL 10 MG SUPP.RECT RC PRN (06:05)
[2021-07-03] MEDS ORDERED: ACETAMINOPHEN 325 MG TABLET (FP) PO PRN (06:05)
[2021-07-03] MEDS ORDERED: METHYLERGONOVINE MALEATE 0.2 MG/1 ML AMP IM PRN (06:05)
[2021-07-03] MEDS ORDERED: WITCH HAZEL 50% (TUCKS) 40 PAD/JAR PAD TP PRN (06:05)
[2021-07-03] MEDS ORDERED: BENZOCAINE 20% 57 GM BOTTLE TP PRN (06:05)
[2021-07-03] MEDS ORDERED: BENZOCAINE 28 GM HEMORRHOIDAL OINTMENT TP PRN (06:05)
[2021-07-03] MEDS ORDERED: OXYTOCIN 20 UNITS in 0.9% NS 20 UNIT/1,000 ML INFUS.BAG IV SCH (06:15)
[2021-07-03] MEDS ORDERED: OXYTOCIN 30 UNITS in 0.9% NS 30 UNIT/500 ML INFUS.BAG IVPB ONE (07:02)
[2021-07-03] MEDS ORDERED: ACETAMINOPHEN INJECTION 100 ML IVPB ONE (07:30)
[2021-07-03] MEDS ORDERED: ACETAMINOPHEN 1000 MG/100 ML BAG IVPB PRN (08:28)
[2021-07-03] MEDS: FERROUS SO4 325 MG TABLET (FP) PO SCH ×3 (08:50→16:56)
[2021-07-03] MEDS: IBUPROFEN 600 MG TABLET (FP) PO PRN ×2 (08:50→18:19)
[2021-07-03] MEDS ORDERED: IBUPROFEN 600 MG TABLET (FP) PO ONE (08:50)
[2021-07-03] MEDS ORDERED: PRENATAL VITAMINS W/ FOLIC ACID TABLET (FP) PO ONE (08:50)
[2021-07-03] MEDS ORDERED: FERROUS SO4 325 MG TABLET (FP) ONE ×2 (08:50→16:52)
[2021-07-03] MEDS: PRENATAL VITAMINS W/ FOLIC ACID TABLET (FP) PO SCH (09:00)
[2021-07-03 09:11] LABS: CORD BASE EXCESS -5.6 mmol/L (0-2); CORD HCO3 19.9 mmHg (20-29); CORD PCO2 39.1 mmHg (30-78); CORD pH 7.324 (7.14-7.44)
[2021-07-03] MEDS: CLINDAMYCIN 900 MG PREMIX IVPB 900 MG/50 ML BAG IVPB SCH ×2 (09:35→18:12)
[2021-07-03 11:19] LABS: HIV INTERPRETATION NEGATIVE (NEGATIVE)
[2021-07-04] MEDS: IBUPROFEN 600 MG TABLET (FP) PO PRN ×3 (01:26→17:24)
[2021-07-04] MEDS: CLINDAMYCIN 900 MG PREMIX IVPB 900 MG/50 ML BAG IVPB SCH (01:44)
[2021-07-04 08:28] LABS: BASO % 0.2 % (0-2.0); EOS % 0.4 % (0-4.5); HEMOGLOBIN 9.2 GM/dL (10.7-15.3); LYMPH % 11.4 % (8-40); MCH 30.3 pg (25.7-33.7); MCHC 34.1 g/dl (32.0-36.0); MEAN CELL VOLUME 88.9 fl (80-96); MONO % 6.6 % (3.8-10.2); NEUT % 81.4 % (42.8-82.8); PLATELET COUNT 224 10^3/uL (134-434); RBC 3.04 M/mm3 (3.60-5.2); RDW 13.1 % (11.6-15.6); WHITE BLOOD COUNT 16.4 K/mm3 (4.0-10.0)
[2021-07-04] MEDS: FERROUS SO4 325 MG TABLET (FP) PO SCH ×3 (09:10→17:24)
[2021-07-04] MEDS: PRENATAL VITAMINS W/ FOLIC ACID TABLET (FP) PO SCH (09:10)
[2021-07-04] MEDS ORDERED: SENNOSIDES/DOCUSATE COMBO (SENNA PLUS) TABLET (UD) PO PRN (22:00)
[2021-07-04] MEDS: ELECTROLYTE-148 SOLN 1,000 ML IV SCH (22:57)
[2021-07-05] MEDS: IBUPROFEN 600 MG TABLET (FP) PO PRN ×2 (06:07→11:45)
[2021-07-05 08:34] VITALS: BP 123/68; PULSE 72; TEMP 97.9
[2021-07-05] MEDS: PRENATAL VITAMINS W/ FOLIC ACID TABLET (FP) PO SCH (09:25)
[2021-07-05] MEDS: FERROUS SO4 325 MG TABLET (FP) PO SCH ×2 (09:25→11:46)
== END 2021-07-05 15:20 | disposition home or self-care (01) | DRG 807 ==
LOC: JDEL 22:50 → JLDR 23:30 → J3W 07-03 17:15
PROVIDERS: ADMIT Obstetrics & Gynecology; ATTEND Obstetrics & Gynecology
PROC: 10E0XZZ Delivery of Products of Conception, External Approach (ICD-10-PCS; principal; 2021-07-03)
PROC: 0HQ9XZZ Repair Perineum Skin, External Approach (ICD-10-PCS; 2021-07-03)
DX: O42.013 Preterm premature rupture of membranes, onset of labor within 24 hours of rupture, third trimester (principal); Z37.0 Single live birth; O70.0 First degree perineal laceration during delivery; O69.81X0 Labor and delivery complicated by cord around neck, without compression, not applicable or unspecified; Z3A.36 36 weeks gestation of pregnancy; Z86.59 Personal history of other mental and behavioral disorders
CPT/HCPCS: 36415; 36600; 59409; 80048; 80307; 82803; 85025; 85610; 85730; 86780; 86803; 86850; 86900; 86901; 87389; 87522; 88307-TC; 96372; C9803-CS; U0003; U0005